=== PATIENT | male | born 1985 | race Caucasian/White ===

== ENCOUNTER 2017-06-11 10:45 | Emergency (ER) | payer BC, OTHER ==
[~2017-06-11] VITALS: Ht 188 cm; Wt 143.5 kg
[2017-06-11] MEDS ORDERED: LORazepam 2 MG/ML, 1ML ONE (11:29)
[2017-06-11] MEDS ORDERED: LORazepam 2 MG/ML, 1ML IVPush ONE (11:30)
[2017-06-11] MEDS ORDERED: SODIUM CHLORIDE 0.9% 1,000ML IVBOLUS ONE (11:30)
[2017-06-11] MEDS ORDERED: SODIUM CHLORIDE FLUSH 10ML SYR IVF ONE (11:30)
[2017-06-11 11:56] LABS: HEMATOCRIT 46.9 % (39.2-51.8); HEMOGLOBIN 15.8 g/dL (13.7-18.0); WHITE BLOOD COUNT 14.2 x10^3/uL (3.4-10)
[2017-06-11 12:03] LABS: ASPARTATE AMINO TRANSFERASE 138 U/L (15-37); BLOOD UREA NITROGEN 8 mg/dL (7-18)
[2017-06-11 13:07] VITALS: BP 128/82
== END 2017-06-11 13:07 | disposition home or self-care (01) ==
LOC: ED 13:00
DX: R55 Syncope and collapse (principal)
CPT/HCPCS: 36415; 70450; 71010; 80053; 85025; 93005; 96361; 96374; 99285; J2060; J7030